=== PATIENT | female | born 1970 | race Caucasian/White ===

== ENCOUNTER 2020-05-15 13:04 | Emergency (ER) | payer OTHER ==
[~2020-05-15] VITALS: Ht 170.2 cm; Wt 98.0 kg
[2020-05-15] MEDS ORDERED: ONDANSETRON HCL INJ 2MG/ML 2ML 2 MG/ML VIAL IV ONE (13:29)
[2020-05-15] MEDS ORDERED: FAMOTIDINE 20 MG/2 ML VIAL IV ONE ×2 (13:29→13:45)
[2020-05-15] MEDS ORDERED: SODIUM CHLORIDE 0.9% 1000ML 1,000 ML IV SCH (13:30)
[2020-05-15] MEDS ORDERED: SODIUM CHLORIDE 0.9% 1000ML 1,000 ML ONE (13:45)
[2020-05-15] MEDS ORDERED: ONDANSETRON HCL INJ 2MG/ML 2ML 2 MG/ML VIAL ONE (13:45)
[2020-05-15] MEDS ORDERED: SODIUM CHLORIDE 0.9% 500ML 500 ML IV ONE (15:15)
[2020-05-15] MEDS ORDERED: PROMETHAZINE 25MG/ NS 50ML (IV) IV ONE (15:15)
[2020-05-15] MEDS ORDERED: SODIUM CHLORIDE 0.9% 500ML 500 ML ONE (15:24)
[2020-05-15] MEDS ORDERED: PROMETHAZINE HCL (IM) 25 MG/ML VIAL IM ONE (15:24)
[2020-05-15] MEDS ORDERED: ACETAMINOPHEN 325 MG TAB ONE (16:39)
[2020-05-15] MEDS ORDERED: ACETAMINOPHEN 325 MG TAB PO ONE (16:45)
[2020-05-15] MEDS ORDERED: PROMETHAZINE HC25 M1 PO (17:42)
[2020-05-15] MEDS ORDERED: FAMOTIDINE20 MG PO (17:44)
[2020-05-15 18:01] VITALS: BP 141/74
== END 2020-05-15 18:00 | disposition home or self-care (01) ==
LOC: FSED 13:25
DX: K29.70 Gastritis, unspecified, without bleeding (principal); R10.13 Epigastric pain; R11.2 Nausea with vomiting, unspecified; R50.9 Fever, unspecified; B34.9 Viral infection, unspecified; E87.6 Hypokalemia; R94.31 Abnormal electrocardiogram [ECG] [EKG]
CPT/HCPCS: 74022; 80048; 80076; 81003; 82553; 84484; 85025; 93005; 96374; 96375; 99283; J2405; J2550; J7030; J7040

== ENCOUNTER 2024-01-12 21:08 | Emergency (ER) | payer BC, OTHER ==
[~2024-01-12] VITALS: Ht 170.2 cm; Wt 81.6 kg
[~2024-01-12 21:08] MED LIST: FAMOTIDINE20 MG PO; PROMETHAZINE HC25 M1 PO
[2024-01-12 21:21] VITALS: PULSE 123; RESP 18; TEMP 100
[2024-01-12] MEDS: SODIUM CHLORIDE 0.9% 1000ML 1,000 ML IV SCH (21:45)
[2024-01-12] MEDS ORDERED: SODIUM CHLORIDE 0.9% 1000ML 1,000 ML IV ONE (21:45)
[2024-01-12] MEDS ORDERED: CEPHALEXIN500 MG PO (22:27)
[2024-01-12] MEDS ORDERED: TAMIFLU75 MG PO (22:28)
[2024-01-12 23:12] VITALS: BP 135/66; PULSE 120; RESP 18; TEMP 99.8; O2SAT 96
== END 2024-01-12 23:12 | disposition home or self-care (01) ==
LOC: FSED 21:16
DX: R50.9 Fever, unspecified (principal); J10.1 Influenza due to other identified influenza virus with other respiratory manifestations; N39.0 Urinary tract infection, site not specified; R80.9 Proteinuria, unspecified; R79.89 Other specified abnormal findings of blood chemistry; R51.9 Headache, unspecified; Z11.52 Encounter for screening for COVID-19
CPT/HCPCS: 0223U; 70450; 80053; 80307; 81003; 85025; 87400; 99284; J0696; J7030